=== PATIENT | female | born 2000 | race Caucasian/White ===

== ENCOUNTER 2019-03-29 18:08 | Inpatient (IN) ==
[2019-03-29 18:03] LABS: Basophils # 0.1 K/mcL (0.0-0.2); Basophils % 0.3 %; Eosinophils # 0.3 K/mcL (0.0-0.6); Eosinophils % 1.8 %; Hematocrit 34.5 % (35.3-44.9); Hemoglobin 11.2 g/dL (11.5-15.4); Immature Granulocytes % 0.6 % (0-4); Lymphocytes # 1.8 K/mcL (0.6-4.6); Lymphocytes % 11.9 %; Mean Corpuscular HGB Conc 32.5 g/dL (31.6-35.5); Mean Corpuscular Hemoglobin 30.7 pg (28.0-33.3); Mean Corpuscular Volume 94.5 fL (83.0-100.0); Monocytes % 6.8 %; Neutrophils # 11.6 K/mcL (1.6-8.9); Platelet Count 227 K/mcL (140-400); Red Blood Count 3.65 M/mcL (3.82-4.97); Red Cell Distribution Width 12.9 % (11.5-14.5); Segmented Neutrophils % 78.6 %; White Blood Count 14.7 K/mcL (4.3-11.1)
[~2019-03-29 18:08] MED LIST: *HR* Nalbuphine 10 MG/ML AMPUL IVP PRN; Famotidine 20 MG/2 ML VIAL IVP PRN; Lidocaine 1% 20 ML MDV INFILT PRN; Metoclopramide 10 MG/2 ML VIAL IVP PRN; Naloxone 0.4 MG/ML INJ IVP PRN; Ondansetron 4 MG/2 ML VIAL IVP PRN; Penicillin G Potassium 5,000,000 UNIT in 0.9 % Sodium Chloride Mini Bag 100 ML IVPB ONE; Ringers Solution, Lactated 1,000 ML IVC SCH
[2019-03-29 18:36] LABS: Alanine Aminotransferase 22 Units/L (7-52); Aspartate Amino Transferase 23 Units/L (13-39); BUN/Creatinine Ratio 11 (6-26); Blood Urea Nitrogen 8 mg/dL (6-20); Lactate Dehydrogenase 145 Units/L (140-271); Protein/Creatinine Ratio,Urine 0.31 mg/mg (0.00-0.20); Uric Acid 6.7 mg/dL (2.3-7.6); eGFR For African Americans > 60 (> 60); eGFR For Non-African Americans > 60 (> 60)
[2019-03-29] MEDS ORDERED: Oxytocin 20 units/ LR 1000 mL 20 UNIT/1,000 ML BAG IVC SCH (19:00)
[2019-03-29] MEDS: Penicillin G Potassium 2,500,000 UNIT in 0.9 % Sodium Chloride 100 ML IVPB SCH (21:50)
[2019-03-29] MEDS ORDERED: Ropivacaine/PF 0.2% 20 ML VIAL EP ONE (23:03)
[2019-03-29] MEDS ORDERED: *HR* FentaNYL (PF) 100 MCG/2 ML VIAL EP ONE (23:03)
[2019-03-29] MEDS ORDERED: EPHEDrine 50 MG/ML VIAL IVP PRN (23:03)
[2019-03-29] MEDS ORDERED: Naloxone 0.4 MG/ML INJ IVP PRN (23:03)
[2019-03-29] MEDS ORDERED: Ondansetron 4 MG/2 ML VIAL IVP PRN (23:03)
[2019-03-29] MEDS ORDERED: Epidural Premix (fent/bupiv) 110 ML EP SCH (23:15)
[2019-03-29] MEDS ORDERED: *HR* FentaNYL (PF) 100 MCG/2 ML VIAL ONE (23:21)
[2019-03-29] MEDS ORDERED: Ropivacaine/PF 0.2% 20 ML VIAL ONE (23:22)
[2019-03-30] MEDS: Penicillin G Potassium 2,500,000 UNIT in 0.9 % Sodium Chloride 100 ML IVPB SCH (01:46)
[2019-03-30 10:21] LABS: Amphetamine Screen,Urine Negative ng/mL (Cutoff=1000); Barbiturate Screen,Urine Negative ng/mL (Cutoff=200); Benzodiazepines Screen,Urine Negative ng/mL (Cutoff=200); Cannabinoid Screen,Urine Negative ng/mL (Cutoff = 50); Cocaine Screen,Urine Negative ng/mL (Cutoff= 300); Opiate Screen,Urine Negative ng/mL (Cutoff=300); Phencyclidine Screen,Urine Negative ng/mL (Cutoff=25)
[2019-03-30] MEDS ORDERED: Ketorolac 30 MG/ML VIAL IVP ONE (10:36)
[2019-03-30] MEDS ORDERED: Oxytocin 20 units/ LR 1000 mL 20 UNIT/1,000 ML BAG IVC SCH (13:01)
[2019-03-30] MEDS ORDERED: Measles/Mumps/Rubella Vacc 0.5 ML VIAL SQ PRN (13:01)
[2019-03-30] MEDS ORDERED: Acetaminophen 325 MG TABLET PO SCH (13:01)
[2019-03-30] MEDS ORDERED: Rho Immune Globulin 1,500 UNIT SYRINGE IM PRN (13:01)
[2019-03-30] MEDS ORDERED: Ketorolac 30 MG/ML VIAL IVP SCH (17:00)
[2019-03-31] MEDS ORDERED: Prenatal Vit/FA 1 EACH TABLET PO SCH (09:00)
[2019-03-31 11:19] VITALS: BP 139/85
[2019-03-31] MEDS ORDERED: Ibuprofen 600 MG TABLET PO SCH (12:00)
== END 2019-03-31 12:49 | disposition home or self-care (01) | DRG 560 ==
LOC: 1NENULAB → 1NENUOBS 03-30 12:59
PROVIDERS: ADMIT Advanced Practice Midwife; ATTEND Advanced Practice Midwife

== ENCOUNTER → 2020-04-28 16:30 | Observation (INO) | END | disposition home or self-care (01) | LOC: 1NENULAB | PROVIDERS: ADMIT Obstetrics & Gynecology; ATTEND Obstetrics & Gynecology ==

== ENCOUNTER 2020-04-29 05:10 | Inpatient (IN) ==
[~2020-04-29 05:10] MED LIST changes: +*HR* FentaNYL (PF) 100 MCG/2 ML VIAL IVP PRN; -*HR* Nalbuphine 10 MG/ML AMPUL IVP PRN; -Ondansetron 4 MG/2 ML VIAL IVP PRN; -Ringers Solution, Lactated 1,000 ML IVC SCH
[2020-04-29] MEDS: Ringers Solution, Lactated 1,000 ML IVC SCH ×2 (05:36→09:05)
[2020-04-29] MEDS ORDERED: EPHEDrine 50 MG/ML VIAL IVP PRN (05:40)
[2020-04-29 05:43] LABS: Basophils % 0.2 %; Eosinophils # 0.1 K/mcL (0.0-0.6); Eosinophils % 0.5 %; Hematocrit 31.2 % (35.3-44.9); Hemoglobin 9.8 g/dL (11.5-15.4); Immature Granulocytes % 0.5 % (0-4); Lymphocytes # 1.5 K/mcL (0.6-4.6); Lymphocytes % 8.5 %; Mean Corpuscular HGB Conc 31.4 g/dL (31.6-35.5); Mean Corpuscular Hemoglobin 29.3 pg (28.0-33.3); Mean Corpuscular Volume 93.4 fL (83.0-100.0); Mean Platelet Volume 11.4 fL (9.4-12.4); Monocytes # 0.9 K/mcL (0.0-1.3); Monocytes % 5.4 %; Neutrophils # 14.6 K/mcL (1.6-8.9); Platelet Count 306 K/mcL (140-400); Red Blood Count 3.34 M/mcL (3.82-4.97); Red Cell Distribution Width 12.9 % (11.5-14.5); Segmented Neutrophils % 84.9 %; White Blood Count 17.1 K/mcL (4.3-11.1)
[2020-04-29] MEDS ORDERED: Epidural Premix (fent/bupiv) 110 ML EP SCH (05:45)
[2020-04-29 05:52] LABS: Amphetamine Screen,Urine Negative ng/mL (Cutoff=1000); Barbiturate Screen,Urine Negative ng/mL (Cutoff=200); Benzodiazepines Screen,Urine Negative ng/mL (Cutoff=200); Cannabinoid Screen,Urine Negative ng/mL (Cutoff = 50); Cocaine Screen,Urine Negative ng/mL (Cutoff= 300); Opiate Screen,Urine Negative ng/mL (Cutoff=300); Phencyclidine Screen,Urine Negative ng/mL (Cutoff=25)
[2020-04-29] MEDS ORDERED: Ondansetron 4 MG/2 ML VIAL IVP PRN (06:00)
[2020-04-29] MEDS ORDERED: Penicillin G Potassium 2,500,000 UNIT/105 ML MLS IVPB SCH (08:00)
[2020-04-29] MEDS ORDERED: Ropivacaine/PF 0.2% 20 ML VIAL ONE (10:57)
[2020-04-29] MEDS ORDERED: *HR* FentaNYL (PF) 100 MCG/2 ML VIAL ONE (10:57)
[2020-04-29] MEDS ORDERED: Lanolin 7 G OINT...G. TP PRN (15:27)
[2020-04-29] MEDS ORDERED: Ibuprofen 600 MG TABLET PO PRN (15:27)
[2020-04-29] MEDS ORDERED: Benzocaine/Menthol 56 GM AEROSOL SPRAY TP PRN (15:27)
[2020-04-29] MEDS ORDERED: Rho Immune Globulin 1,500 UNIT SYRINGE IM PRN (15:27)
[2020-04-29] MEDS ORDERED: Oxytocin 20 units/ LR 1000 mL 20 UNIT/1,000 ML BAG IVC SCH (15:27)
[2020-04-29] MEDS: Acetaminophen 325 MG TABLET PO PRN (16:42)
[2020-04-30] MEDS: Acetaminophen 325 MG TABLET PO PRN (00:12)
[2020-04-30 04:20] LABS: Basophils % 0.2 %; Eosinophils # 0.1 K/mcL (0.0-0.6); Hematocrit 28.1 % (35.3-44.9); Immature Granulocytes % 0.4 % (0-4); Lymphocytes % 15.2 %; Mean Corpuscular Hemoglobin 30.4 pg (28.0-33.3); Mean Corpuscular Volume 94.9 fL (83.0-100.0); Mean Platelet Volume 11.5 fL (9.4-12.4); Monocytes % 7.6 %; Neutrophils # 9.8 K/mcL (1.6-8.9); Platelet Count 239 K/mcL (140-400); Red Blood Count 2.96 M/mcL (3.82-4.97); Red Cell Distribution Width 13.2 % (11.5-14.5); Segmented Neutrophils % 75.6 %; White Blood Count 12.9 K/mcL (4.3-11.1)
[2020-04-30 08:14] VITALS: BP 114/69
[2020-04-30] MEDS ORDERED: Prenatal Vit/FA 1 EACH TABLET PO SCH (09:00)
== END 2020-04-30 14:00 | disposition home or self-care (01) | DRG 560 ==
LOC: 1NENULAB → 1NENUOBS 15:26
PROVIDERS: ADMIT Obstetrics & Gynecology; ATTEND Obstetrics & Gynecology